=== PATIENT | male | born 1940 | race Caucasian/White ===

== ENCOUNTER → 2022-07-18 | Outpatient (CLI) | payer MEDICARE, SELFPAY ==
[2022-07-18 22:05] LABS: Absolute Lymphocyte Count 1.53 X10^3/uL (0.83-4.51); Absolute Neutrophil Count 2.8 X10^3/uL (2.0-7.7); Basophil# 0.05 X10^3/uL; Eosinophil# 0.21 X10^3/uL; Hematocrit 41.6 % (40-54); Hemoglobin 13.5 g/dL (13.0-16.5); Lymphocyte # 1.53 X10^3/ul (0.83-4.51); Lymphocyte % 29.1 % (19-41); Mean Corp Hgb Conc 32.5 g/dL (32-36); Mean Corpuscular Hgb 31.8 pg (27.0-32.0); Mean Corpuscular Volume 98.1 fL (80-94); Mean Platelet Vol. 10.3 fl (6.2-12.0); Monocyte# 0.66 X10^3/uL; Monocyte% 12.5 % (0-10); NRBC Flagged by Analyzer 0 % (0-5); Neutrophil % 53.2 % (47-70); Platelet Count 183 K/mm3 (150-450); RBC Distribution Width CV 14.5 % (11.6-14.6); RBC Distribution Width SD 52.6 fl (35.1-43.9); Red Blood Count 4.24 M/mm3 (4.6-6.2); White Blood Count 5.3 K/mm3 (4.4-11.0)
[2022-07-18 22:47] LABS: AST(SGOT) 18 U/L (15-37); Alanine Aminotransfer ALT/SGPT 27 U/L (16-61); Albumin, Serum 3.7 g/dL (3.2-5.0); Alkaline Phosphatase 69 U/L (45-117); Anion Gap 6 (5-15); BUN 22 mg/dL (7-18); BUN/Creat Ratio 19.1 RATIO (10-20); Calcium,Total 8.6 mg/dL (8.5-10.1); Chloride 104 mmol/L (98-107); Cholesterol 122 mg/dL (200); Creatinine, Serum 1.15 mg/dL (0.70-1.30); EST Glomerular Filtration Rate 64 mL/min (>60); Est Glom Filt Rate - Afr Amer 78 mL/min (>60); Globulin 3.7 g/dL (2.2-4.2); Glucose 88 mg/dL (74-106); High Density Lipoprotein 51 mg/dL; PSA,Total - Annual Screen 0.76 ng/mL (0.00-4.00); Potassium 4.1 mmol/L (3.5-5.1); Protein, Total 7.4 g/dL (6.4-8.2); Sodium Level 139 mmol/L (136-145); Triglycerides 114 mg/dL; Very Low Density Lipoprotein 23 mg/dL (5-40)
== END | disposition home or self-care (01) ==
PROVIDERS: Visit Provider Nurse Practitioner
DX: I25.10 Atherosclerotic heart disease of native coronary artery without angina pectoris (principal); I10 Essential (primary) hypertension; N40.0 Benign prostatic hyperplasia without lower urinary tract symptoms; Z12.5 Encounter for screening for malignant neoplasm of prostate
CPT/HCPCS: 80053; 80061; 84153; 85025; G0103

== ENCOUNTER → 2022-09-24 | Outpatient (CLI) | payer MEDICARE, SELFPAY ==
[2022-09-24 22:51] LABS: CRP, High Sensitivity Cardiac 1.93 mg/L
[2022-09-27 20:28] LABS: Vitamin D 1,25-Dihydroxy 48.8 pg/mL (24.8-81.5)
== END | disposition home or self-care (01) ==
PROVIDERS: Visit Provider Nurse Practitioner
DX: I10 Essential (primary) hypertension (principal); I25.10 Atherosclerotic heart disease of native coronary artery without angina pectoris; E55.9 Vitamin D deficiency, unspecified; E78.5 Hyperlipidemia, unspecified
CPT/HCPCS: 82652; 86141

== ENCOUNTER → 2022-10-21 | Outpatient (CLI) | payer MEDICARE, SELFPAY ==
--- NOTE | 2022-10-21 08:56 | AAVD_ITS ---
Reason For Study: AAA Aorta Measurements Aorta Doppler Measurements Proximal aorta measures2.47 x 2.47cm. in cross- Peak systolic flow velocities within the proximal sectional axis. aorta measure 32.9 cm/sec. Proximal aorta measures2.45cm. in longitudinal Peak systolic flow velocities within the mid aorta axis. measure 18.4 cm/sec. Mid aorta measures2.73 x 2.74cm. in cross- Peak systolic flow velocities within the distal sectional axis. aorta measure 28.4 cm/sec. Mid aorta measures2.71cm. in longitudinal axis. Distal aorta measures2.16 x 2.16cm. in cross- sectional axis. Distal aorta measures2.17cm. in longitudinal axis. Left Iliac Artery Left iliac artery measures 0.88 x 0.80 cm. in the cross-sectional axis. Left iliac artery measures 0.84 cm. in the longitudinal axis. Peak systolic velocity in the left iliac artery measures 105.7 cm/sec. Right Iliac Artery Right iliac artery measures 1.30 x 1.32 cm. in the cross-sectional axis. Right iliac artery measures 1.34 cm. in the longitudinal axis. Peak systolic velocity in the right iliac artery measures 69.9 cm/sec. Procedure Aorta IVC Iliac vasculature or bypass grafts [id number]. Technically difficult due to bowel gas. Exam performed in department. VL/Abd Aortic/IVC Duplex scan Interpretation Summary Aorta patent, normal caliber Bilateral iliac arteries patent, normal caliber Ordering Physician: Hanh Rhoades Referring Physician: Brielle Nuñez Performed By: Brandee Meek RVT
== END | disposition home or self-care (01) ==
PROVIDERS: PCP Nurse Practitioner; Referring Provider Internal Medicine Cardiovascular Disease; Visit Provider Internal Medicine Cardiovascular Disease
DX: I10 Essential (primary) hypertension (principal); I71.40 Abdominal aortic aneurysm, without rupture, unspecified
CPT/HCPCS: 93978

== ENCOUNTER → 2022-12-26 | Outpatient (CLI) | payer MEDICARE, SELFPAY ==
[2022-12-26 13:30] LABS: AST(SGOT) 20 U/L (15-37); Alanine Aminotransfer ALT/SGPT 26 U/L (16-61); Albumin, Serum 3.7 g/dL (3.2-5.0); Alkaline Phosphatase 57 U/L (45-117); Bilirubin, Direct 0.18 mg/dL (0.00-0.30); Globulin 3.4 g/dL (2.2-4.2); Protein, Total 7.1 g/dL (6.4-8.2); Thyroid Stim Hormone (TSH) 2.03 uIU/mL (0.358-3.74)
== END | disposition home or self-care (01) ==
LOC: LAB 12:04
PROVIDERS: PCP Nurse Practitioner; Referring Provider Internal Medicine Cardiovascular Disease; Visit Provider Internal Medicine Cardiovascular Disease
DX: I48.0 Paroxysmal atrial fibrillation (principal); E78.5 Hyperlipidemia, unspecified; Z79.899 Other long term (current) drug therapy
CPT/HCPCS: 36415; 80076; 84443

== ENCOUNTER → 2023-01-09 | Outpatient (CLI) | payer MEDICARE, SELFPAY ==
--- NOTE | 2023-01-10 07:49 | PFT ---
INTRODUCTION: The patient is an 82-year-old male that presents for pulmonary function studies secondary to a diagnosis of amiodarone use. Respiratory therapy reported good patient effort. Bronchodilators were used during testing. INTERPRETATION: Forced expiration spirometry demonstrates the presence of a moderate large airways obstructive ventilatory defect. There was a significant response to aerosolized bronchodilators. Spirograms are of good quality but do not plateau indicating slow emptying of the lungs. Body plethysmography was performed and revealed an elevated RV to 127% of predicted, indicative of underlying air trapping. Diffusing capacity by single breath CO was within normal limits. IMPRESSION: Partially reversible moderate large airways obstructive ventilatory defect with associated air trapping.
== END | disposition home or self-care (01) ==
LOC: PSN 12:18
PROVIDERS: PCP Nurse Practitioner; Referring Provider Internal Medicine Cardiovascular Disease; Visit Provider Internal Medicine Cardiovascular Disease
DX: I48.0 Paroxysmal atrial fibrillation (principal); Z79.899 Other long term (current) drug therapy
CPT/HCPCS: 94060; 94726; 94729

== ENCOUNTER → 2023-06-02 | Outpatient (CLI) | payer MEDICARE, SELFPAY ==
[2023-06-02 14:15] LABS: AST(SGOT) 15 U/L (15-37); Alanine Aminotransfer ALT/SGPT 20 U/L (16-61); Thyroid Stim Hormone (TSH) 3.06 uIU/mL (0.358-3.74)
== END | disposition home or self-care (01) ==
LOC: LAB 12:13
PROVIDERS: PCP Nurse Practitioner; Referring Provider Internal Medicine Cardiovascular Disease; Visit Provider Internal Medicine Cardiovascular Disease
DX: I10 Essential (primary) hypertension (principal); I48.0 Paroxysmal atrial fibrillation; E78.5 Hyperlipidemia, unspecified; Z95.1 Presence of aortocoronary bypass graft
CPT/HCPCS: 36415; 84443; 84450; 84460

== ENCOUNTER → 2023-06-18 | Outpatient (CLI) | payer MEDICARE, SELFPAY ==
--- NOTE | 2023-06-19 07:42 | PFT ---
INTRODUCTION: The patient is an 83-year-old male who presents for pulmonary function studies secondary to a diagnosis of shortness of breath. Respiratory therapy reported good patient effort. Bronchodilators were used during testing. INTERPRETATION: Forced expiration spirometry demonstrates the presence of a moderately severe large airways obstructive ventilatory defect. There was a significant response to aerosolized bronchodilators. Spirograms are of fair quality but do not plateau indicating slow emptying of the lungs. Body plethysmography was performed and revealed an elevated RV to 189% of predicted, indicative of underlying air trapping. Diffusing capacity by single breath CO is reduced at 56% of predicted. IMPRESSION: Partially reversible moderately severe large airways obstructive ventilatory defect with associated air trapping and symmetric reduction in diffusing capacity.
--- NOTE | 2023-06-19 16:04 | STRESSREP_ITS ---
Stress Test Report Date: 06/18/2023 Procedure: Pharmacologic stress nuclear imaging study Indications: Paroxysmal atrial fibrillation Consent: Per the patient Procedure: The patient underwent pharmacologic (Regadenoson 0.4mg ) evaluation with a peak heart rate of 83 beats per minute (60%predicted maximal heart rate) and a peak blood pressure of 130/78 mmHg. The baseline ECG demonstrated sinus rhythm with first-degree AV block. Right bundle branch block. The peak pharmacologic ECG demonstrated no diagnostic ischemic changes. There were no cardiac dysrhythmias pretest, during pharmacologic infusion, or recovery. There was no complaint of chest discomfort during pharmacologic infusion or recovery. The patient was injected with 13.4 millicuries of technetium 99m Cardiolite and subsequently rest SPECT Cardiolite nuclear imaging was obtained in the horizontal long, vertical long, and short axis views. The patient underwent pharmacologic (Regadenoson) evaluation. The patient was injected with 43.5 millicuries of technetium 99m Cardiolite and subsequently stress SPECT Cardiolite nuclear imaging was obtained in the horizontal long, vertical long, and short axis views. A gated Cardiolite study at peak stress was obtained. The examination was stopped secondary to completion of protocol. Rest and stress SPECT Cardiolite nuclear imaging status post realignment, normalization, and attenuation correction demonstrate no fixed or reversible perfusion defect. There is end systolic thickening and brightening. The gated Cardiolite study demonstrates myocardial thickening and inward wall motion. The reported LVEF is 64%. Impression: 1. Pharmacologic (Regadenoson) evaluation 2. Peak pharmacologic ECG with no diagnostic changes. 3. There were no cardiac dysrhythmias pretest, during pharmacologic infusion, or recovery. 5. Rest and stress SPECT Cardiolite nuclear imaging demonstrate relative uniform tracer uptake and myocardial perfusion appearing within normal limits. 6. The gated Cardiolite study reports an LVEF of 64%. This note was generated with [employer] software. It may contain incorrect words, spelling, and punctuation that were not noted in checking the note before signing.
== END | disposition home or self-care (01) ==
PROVIDERS: PCP Nurse Practitioner; Referring Provider Internal Medicine Cardiovascular Disease; Visit Provider Internal Medicine Cardiovascular Disease
DX: I48.0 Paroxysmal atrial fibrillation (principal); R06.02 Shortness of breath; Z79.899 Other long term (current) drug therapy; Z95.1 Presence of aortocoronary bypass graft; I25.10 Atherosclerotic heart disease of native coronary artery without angina pectoris; E78.5 Hyperlipidemia, unspecified
CPT/HCPCS: 78452; 93017; 94060; 94726; 94729; A9500; A4216; J2785

== ENCOUNTER → 2023-06-18 | Outpatient (CLI) | payer MEDICARE, SELFPAY | END | disposition home or self-care (01) | LOC: PSN 06:29 | PROVIDERS: PCP Nurse Practitioner; Visit Provider Internal Medicine Cardiovascular Disease | DX: Z00.00 Encounter for general adult medical examination without abnormal findings (principal) ==

== ENCOUNTER → 2024-02-11 | Outpatient (CLI) | payer MEDICARE, SELFPAY ==
[2024-02-11 16:25] LABS: Absolute Lymphocyte Count 1.43 X10^3/uL (0.83-4.51); Absolute Neutrophil Count 3.8 X10^3/uL (2.0-7.7); Basophil# 0.06 X10^3/uL; Eosinophil# 0.08 X10^3/uL; Eosinophils% 1.3 % (0-5); Hematocrit 44.1 % (40-54); Hemoglobin 14.8 g/dL (13.0-16.5); Lymphocyte # 1.43 X10^3/ul (0.83-4.51); Lymphocyte % 23.7 % (19-41); Mean Corp Hgb Conc 33.6 g/dL (32-36); Mean Corpuscular Hgb 32.1 pg (27.0-32.0); Mean Corpuscular Volume 95.7 fL (80-94); Mean Platelet Vol. 9.4 fl (6.2-12.0); Monocyte# 0.69 X10^3/uL; Monocyte% 11.4 % (0-10); NRBC Flagged by Analyzer 0 % (0-5); Neutrophil # 3.77 X10^3/uL (2.7-7.7); Neutrophil % 62.4 % (47-70); Platelet Count 218 K/mm3 (150-450); RBC Distribution Width CV 13.2 % (11.6-14.6); RBC Distribution Width SD 46.5 fl (35.1-43.9); Red Blood Count 4.61 M/mm3 (4.6-6.2)
[2024-02-11 16:45] LABS: BNP,B-Type NATRIURETIC PEPTIDE 40.2 pg/mL (0-100)
[2024-02-11 16:46] LABS: Anion Gap 7 (5-15); BUN 17 mg/dL (7-18); BUN/Creat Ratio 13.1 RATIO (10-20); Calcium,Total 8.9 mg/dL (8.5-10.1); Chloride 102 mmol/L (98-107); EST Glomerular Filtration Rate 56 mL/min (>60); Est Glom Filt Rate - Afr Amer 67 mL/min (>60); Glucose 109 mg/dL (74-106); Potassium 3.2 mmol/L (3.5-5.1); Sodium Level 139 mmol/L (136-145)
== END | disposition home or self-care (01) ==
PROVIDERS: PCP Nurse Practitioner; Referring Provider Nurse Practitioner Gerontology; Visit Provider Nurse Practitioner Gerontology
DX: R06.00 Dyspnea, unspecified (principal)
CPT/HCPCS: 36415; 80048; 83880; 85025

== ENCOUNTER → 2025-03-30 | Outpatient (CLI) | payer MEDICARE, MEDICAID, SELFPAY ==
--- NOTE | 2025-03-30 13:04 | ECHOD_ITS ---
Reason For Study Reason For Study: CORONARY ARTERY DISEASE Procedure This was a 2D Doppler, Color Flow transthoracic echocardiogram. The study was technically difficult. Exam performed portable in patient room. Left Ventricle Normal LV size. Mild concentric left ventricular hypertrophy. The left ventricular ejection fraction is 60 %. Stage 1 diastolic dysfunction. Right Ventricle Normal right ventricle. Atria The left and right atria are normal. Mitral Valve Mild mitral annular calcification. Trivial mitral valve insufficiency. Tricuspid Valve Normal tricuspid valve. Aortic Valve Moderately thickened and calcified aortic valve leaflets. Aortic valve sclerosis without stenosis. Pulmonic Valve The pulmonic valve is not well visualized. Trivial pulmonic valve insufficiency. Great Vessels Normal sized aortic root. Pericardium/Pleural No pericardial effusion. MMode/2D Measurements & Calculations LVIDd: 4.7 cm IVSd: 1.3 cm LVOT diam: 2.0 cm LVIDs: 2.9 cm LVPWd: 1.0 cm LVOT area: 3.1 cm2 RVDd: 4.4 cm FS: 37.9 % asc Aorta Diam: 3.8 cm LAV(MOD-bp): 35.0 ml LVAd ap4: 22.8 cm2 LAV(MOD-bp) Indexed: 15.8 ml/m2 LVLd ap4: 7.8 cm LAV(MOD-sp2): 32.6 ml EDV(MOD-sp4): 54.1 ml LAV(MOD-sp4): 36.6 ml EDV(sp4-el): 56.5 ml LVAs ap4: 14.0 cm2 LVLs ap4: 6.5 cm ESV(MOD-sp4): 24.8 ml ESV(sp4-el): 25.5 ml EF(MOD-sp4): 54.2 % EF(sp4-el): 54.9 % LVAd ap2: 15.3 cm2 SV(MOD-sp4): 29.3 ml SV(MOD-sp2): 14.5 ml LVLd ap2: 7.6 cm SI(MOD-sp4): 13.2 ml/m2 SI(MOD-sp2): 6.5 ml/m2 EDV(MOD-sp2): 27.9 ml EDV(sp2-el): 26.1 ml LVAs ap2: 10.0 cm2 LVLs ap2: 6.6 cm ESV(MOD-sp2): 13.5 ml ESV(sp2-el): 12.9 ml EF(MOD-sp2): 51.8 % SV(sp4-el): 31.0 ml LA dimension(2D): 3.7 cm LA A4 area: 15.1 cm2 RA A4 area: 12.7 cm2 TAPSE: 1.3 cm Time Measurements MV dec time: 0.70 sec Doppler Measurements & Calculations MV E max fabio: 48.9 cm/sec Lat Peak E' Fabio: 8.5 cm/sec Med Peak E' Fabio: 8.5 cm/sec MV A max fabio: 110.7 cm/sec E/E' lat: 5.8 E/E' med: 5.8 MV E/A: 0.44 Ao V2 max: 115.0 cm/sec LV V1 max: 101.5 cm/sec MV dec slope: 69.5 cm/sec2 Ao max P.3 mmHg LV V1 max P.1 mmHg Ao V2 mean: 78.1 cm/sec LV V1 mean P.0 mmHg Ao mean P.8 mmHg LV V1 mean: 64.5 cm/sec Ao V2 VTI: 23.2 cm LV V1 VTI: 18.0 cm AV (velocity ratio): 0.78 KIRK(I,D): 2.4 cm2 KIRK(V,D): 2.7 cm2 SV(LVOT): 56.0 ml PA V2 max: 75.2 cm/sec ECHO/Echo Complete Interpretation Summary Mild concentric left ventricular hypertrophy. The left ventricular ejection fraction is 60 %. Stage 1 diastolic dysfunction. Mild mitral annular calcification. Moderately thickened and calcified aortic valve leaflets. Aortic valve sclerosi s without stenosis. Ordering Physician: Hanh Rhoades Referring Physician: sudeep porras Performed By: Concepcion Espinoza RDCS
== END | disposition home or self-care (01) ==
LOC: CVS 13:02
PROVIDERS: PCP Internal Medicine Geriatric Medicine; Referring Provider Internal Medicine Cardiovascular Disease; Visit Provider Internal Medicine Cardiovascular Disease
DX: I25.10 Atherosclerotic heart disease of native coronary artery without angina pectoris (principal)
CPT/HCPCS: 93306

== ENCOUNTER → 2025-09-05 | Outpatient (CLI) | payer MEDICARE, MEDICAID, SELFPAY ==
[2025-09-05 10:00] LABS: AST(SGOT) 21 U/L (<=37); Alanine Aminotransfer ALT/SGPT 22 U/L (<=46); Albumin, Serum 4.6 g/dL (3.4-4.8); Alkaline Phosphatase 81 U/L (40-129); Bilirubin, Direct 0.23 mg/dL (0.00-0.30); Cholesterol 145 mg/dL (<=200); Globulin 2.8 g/dL (2.2-4.2); Low Density Lipoprotein Calc. 80 mg/dL; Triglycerides 113 mg/dL; Very Low Density Lipoprotein 23 mg/dL (5-40); cholesterol:hdl ratio screen 3.28
== END | disposition home or self-care (01) ==
LOC: LAB 09:10
PROVIDERS: PCP Internal Medicine Geriatric Medicine; Referring Provider Student in an Organized Health Care Education/Training Program; Visit Provider Student in an Organized Health Care Education/Training Program
DX: E78.5 Hyperlipidemia, unspecified (principal)
CPT/HCPCS: 36415; 80061; 80076